=== PATIENT | female | born 1955 | race African-American/Black ===

== ENCOUNTER 2019-07-27 11:30 | Day surgery (SDC) | payer OTHER ==
[~2019-07-27] VITALS: Ht 157.5 cm; Wt 80.7 kg
[~2019-07-27 11:30] MED LIST: ASA81BEC PO; ATORVASTATIN CA10 MG PO; BRIMONIDINE TART5 ML OPHTHALMIC; CALCIUM500 MG PO; PANTOPRAZOLE SO40 M1 PO; PRED FORTE 1% EY5 M1 OPHTHALMIC; PREDNISONE 5 MG5 M1 PO
[2019-07-27 12:18] LABS: HEMATOCRIT 36.1 % (37.0-47.0); HEMOGLOBIN 11.6 gm/dL (12.0-15.0); MCH 27.9 pg (26.0-34.0); MCV 87.4 fL (80.0-100.0); RBC 4.14 mil/uL (4.20-5.00); RDW 15.1 % (10.5-14.5); WBC 13.8 thou/uL (4.0-11.0)
[2019-07-27 12:27] LABS: CALCIUM 8.7 mg/dL (8.5-10.1); CREATININE 0.8 mg/dL (0.6-1.0); POTASSIUM 3.6 mmol/L (3.5-5.1)
[2019-07-27 13:06] VITALS: BP 106/73
[2019-07-27] MEDS ORDERED: PERCOCET 7.5-31 EAC1 PO (13:45)
[2019-07-27 14:36] VITALS: BP 106/73
--- NOTE | 2019-08-03 15:42 | O ---
[facility] [place] [address] OPERATIVE REPORT Name: RONNIE BROWN I Room #: DEP [facility].#: [id number] Admission: 07/27/19 Attend Phys: Tres Jenkins MD Discharge: 07/27/19 Date of : 55 Report #: [id number] THIS REPORT FOR: cc: VANE AGARWAL Physician not on staff Tres Jenkins MD ~ CC: VANE Jenkins Physician staff DATE OF SERVICE: 07/27/2019 PREOPERATIVE DIAGNOSIS: Right third toe gangrene. POSTOPERATIVE DIAGNOSIS: Right third toe gangrene. PROCEDURE: Right third toe amputation. SURGEON: Dr. Tres Jenkins. UNDERGROUND SUPERVISOR: Kimberlyn Montgomery. ANESTHESIA: General. ESTIMATED BLOOD LOSS: Minimal. DRAINS: No drains. TOURNIQUET TIME: 20 minutes. DESCRIPTION OF PROCEDURE: The patient brought to the operating room where she was placed under general anesthesia. Once under adequate general anesthesia, her right lower extremity was prepped and draped in sterile manner. The extremity was elevated and tourniquet placed to 250 mmHg. A fishmouth incision was then made about the distal interphalangeal joint of the third toe. This was dissected sharply down to the bone. The distal and then the middle phalanx were removed sequentially with a 15 blade incising the extensor tendons and the flexor tendons along with the collateral ligaments through the proximal interphalangeal joint. Once removed, the head of the proximal phalanx was excised with a rongeur and the wound was irrigated copiously and closed with 3-0 nylon suture for the skin. The wound was dressed with Xeroform, 4 x 4s, and sterile soft compressive dressing was placed. Tourniquet was let down approximately 20 minutes. The remainder of the toes were pink and warm with good capillary refill. There were no complications from the procedure. The [facility] [address] [place] [address] OPERATIVE REPORT Name: RONNIE BROWN I Room #: [facility]#: [id number] Admission: 07/27/19 Attend Phys: Tres Jenkins MD Discharge: 07/27/19 Date of : 55 Report #: [id number] patient tolerated the procedure well and went to the recovery room without incident. <ELECTRONICALLY SIGNED> By: Tres Jenkins MD 08/03/19 [id number] Tres Jenkins MD /nt
== END 2019-07-27 15:00 | disposition home or self-care (01) ==
LOC: OR 11:30 → TBA 11:31 → OR 11:51
PROVIDERS: Orthopaedic Surgery Foot and Ankle Surgery
DX: I96 Gangrene, not elsewhere classified (principal); D64.9 Anemia, unspecified; J44.9 Chronic obstructive pulmonary disease, unspecified; Z98.890 Other specified postprocedural states; Z79.899 Other long term (current) drug therapy; Z87.891 Personal history of nicotine dependence; Z88.2 Allergy status to sulfonamides; Z85.3 Personal history of malignant neoplasm of breast
CPT/HCPCS: 50010; 50101; 50386; 56527; 57091; 57179; 62110; 62900; 70005